=== PATIENT | male | born 1970 | race Caucasian/White ===

== ENCOUNTER 2022-06-17 12:45 | Outpatient (RCR) | payer BC, SELFPAY | END 2022-09-21 14:48 | disposition home or self-care (01) | PROVIDERS: PCP Family Medicine; Visit Provider Family Medicine | DX: M54.16 Radiculopathy, lumbar region (principal); M51.26 Other intervertebral disc displacement, lumbar region; M79.604 Pain in right leg; Z51.89 Encounter for other specified aftercare | CPT/HCPCS: 97110; 97140; 97162 ==